=== PATIENT | female | born 1990 ===

== ENCOUNTER 2025-04-01 11:34 | Emergency (ER) | payer OTHER ==
[~2025-04-01] VITALS: Ht 162.6 cm; Wt 90.0 kg
[2025-04-01] MEDS ORDERED: IBUPROFEN 600 MG TAB PO ONE (14:00)
[2025-04-01] MEDS ORDERED: IBU600 MG PO (16:21)
[2025-04-01] MEDS ORDERED: HYDROCODON-ACE1 EAC8 PO (16:21)
[2025-04-01] MEDS ORDERED: HYDROCODONE/APAP 10/325 1 TAB PO ONE (16:30)
[2025-04-01 16:38] VITALS: BP 126/78
== END 2025-04-01 16:42 | disposition home or self-care (01) ==
LOC: ED 11:34
DX: S22.41XA Multiple fractures of ribs, right side, initial encounter for closed fracture (principal); Y04.0XXA Assault by unarmed brawl or fight, initial encounter
CPT/HCPCS: 71045; 71250; 73110; 99284-25; A9270